=== PATIENT | female | born 1960 | race Caucasian/White ===

== ENCOUNTER → 2017-06-16 | Outpatient (CLI) | payer OTHER ==
--- NOTE | 2017-06-16 21:16 | MRI ---
EXAM DESCRIPTION: Lumbar Spine w/o Contrast MRI. CLINICAL HISTORY: LOW BACK PAIN COMPARISON: None. TECHNIQUE: Multiplanar, multiple standard sequences, high-field, non contrast MRI, lumbar spine. FINDINGS: L5-S1: Minimal disc desiccation. Minimal disc space loss. Tiny anterior and posterior bulging. Modic type II endplate reactive changes anterior endplates more superior than inferior. Minimal ligament hypertrophy. No significant canal narrowing. Disc bulge into the bilateral foramina causing moderate foraminal narrowing. L4-5: Minimal disc desiccation. Trace anterolisthesis. Tiny posterior bulge. Minimal hypertrophy of the facets and ligaments with mild to moderate canal narrowing. Mild right foraminal narrowing and left foramen patent. L3-4: Minimal hypertrophy of the posterior ligaments. Disc and disc space unremarkable. Mild canal narrowing. Bilateral foramina are patent. L2-3: Unremarkable. L1-L2: Unremarkable. Conus terminates at this level. T12-L1: Unremarkable. Paravertebral soft tissues negative. Minimal marrow edema like signal in the right L5 pedicle abutting the facet. Normal marrow signal in the remaining vertebral bodies and the posterior elements. Vertebral bodies are not compressed at any level. IMPRESSION: 1. Minimal disc bulging and disc space loss at L5-S1. Moderate anterior spondylosis. Moderate bilateral foraminal narrowing. 2. Minimal L4-5 disc desiccation. Trace anterolisthesis. Posterior elements hypertrophy resulting in moderate canal narrowing. Mild right foraminal narrowing. 3. Minimal marrow edema in the right L5 pedicle abutting the arthrosis in the right L4-5 facet. Electronically signed by: Ronn Reese MD 06/16/2017 9:15 PM ACCOUNTING SPECIALIST Workstation: [id number]
== END | disposition home or self-care (01) ==
LOC: MRI 11:20
PROVIDERS: ATTEND Family Medicine
DX: M51.36 Other intervertebral disc degeneration, lumbar region (principal)

== ENCOUNTER → 2018-05-12 | Outpatient (CLI) | payer OTHER | LOC: GMAH 14:11 | PROVIDERS: ATTEND Family Medicine | DX: I47.1 Supraventricular tachycardia (principal) ==

== ENCOUNTER → 2018-11-11 | Outpatient (CLI) | payer OTHER | LOC: GMAH 16:43 | PROVIDERS: ATTEND Family Medicine | DX: M79.609 Pain in unspecified limb (principal) ==

== ENCOUNTER → 2019-02-08 | Outpatient (CLI) | payer OTHER | LOC: GMALS 16:54 | PROVIDERS: ATTEND Nurse Practitioner Acute Care | DX: N17.9 Acute kidney failure, unspecified (principal) ==

== ENCOUNTER → 2019-02-24 | Outpatient (CLI) | payer OTHER | LOC: LAB.NP 16:01 | PROVIDERS: ATTEND Internal Medicine Nephrology | DX: N18.4 Chronic kidney disease, stage 4 (severe) (principal) ==

== ENCOUNTER → 2019-02-26 | Outpatient (CLI) | payer OTHER ==
--- NOTE | 2019-02-26 16:32 | US ---
EXAM DESCRIPTION: Renal: Ultrasound. CLINICAL HISTORY: 59 years Female Chronic kidney disease, stage 4 (severe) COMPARISON: MRI lumbar spine May 2017. TECHNIQUE: Transcutaneous scanning: Two-dimensional and Doppler modes. FINDINGS: Right kidney measures 7.9 x 4.8 x 4.4 cm; mid-renal cortical thickness 11 mm. . Increased echogenicity but less than that of the liver. No hydronephrosis No echogenic stones. Lobulated contour of the kidney with no perinephric fluid. Normal vascularity. Proximal ureter not seen.. Left kidney measures 10.2 x 5.8 x 5.6 cm; mid-renal cortical thickness 11 mm. Increased echogenicity equal to that of the liver. No hydronephrosis. No echogenic stones. Lobulated contour of the kidney with no perinephric fluid. Normal vascularity.. Proximal ureter not seen.. Urinary bladder not visualized. Abdominal aorta: not measured. IMPRESSION: 1. Right renal atrophy and minimal cortical atrophy. Echogenicity indicating chronic disease. No hydronephrosis or echogenic stones. 2. Normal size of the left kidney with minimal cortical atrophy. Echogenicity indicating chronic disease. No hydronephrosis or echogenic stones. Electronically signed by: Ronn Reese MD 02/26/2019 4:31 PM CDT
== END ==
LOC: US 08:51
PROVIDERS: ATTEND Internal Medicine Nephrology
DX: N18.4 Chronic kidney disease, stage 4 (severe) (principal); N26.1 Atrophy of kidney (terminal)

== ENCOUNTER → 2019-12-06 | Outpatient (CLI) | payer OTHER | LOC: GMA MATASK 10:25 | PROVIDERS: ATTEND Family Medicine | DX: M10.9 Gout, unspecified (principal); E78.2 Mixed hyperlipidemia; I10 Essential (primary) hypertension ==